=== PATIENT | male | born 1955 | race American Indian/Alaskan Native ===

== ENCOUNTER 2023-10-15 07:25 | Day surgery (SDC) | payer BC, OTHER ==
[~2023-10-15] VITALS: Ht 172.7 cm; Wt 79.4 kg
[~2023-10-15 07:25] MED LIST: AMOX TR-K CLV1 EAC1 PO; ASPIRIN81 MG PO; CIPRO500 MG PO; CRESTOR20 MG PO; DOXYCYCLINE HY100 MG PO; ERYTHROMYCIN333 MG PO; HUMALOG100 UNITS/ IV; IBLOOD GLUCOSE TEST STRIP 1 EA TEST VI PRN; LACTATED RINGER'S 1,000 ML IV SCH; LIDOCAINE HCL 1% 5 ML SDV INJ ONE; MAGNESIUM400 M1 PO; METFORMIN HCL500 MG PO; NEURONTIN300 MG PO; OZEMPIC1 MG/0.71 SUB-Q; PRILOSEC OTC20 MG PO; TRAZODONE HCL50 MG NG; ZESTRIL5 MG PO
[2023-10-15] MEDS ORDERED: propofoL 200 MG/20 ML VIAL ONE (07:36)
[2023-10-15] MEDS ORDERED: LIDOCAINE HCL 2% 5 ML SDV ONE (07:36)
[2023-10-15 07:44] VITALS: BP 124/63
--- NOTE | 2023-10-15 09:22 | NUR ---
10/15/23 0922 Paulette Valencia ON ARRIVAL TO PACU: 78. PATIENT IS UNRESPONSIVE TO MY VOICE. BEDSIDE REPORT TAKEN FROM JE RIZO.
[2023-10-15 09:45] VITALS: BP 119/66
--- NOTE | 2023-10-16 07:29 | OR ---
[facility] [address], [place] [address] Signed DATE OF OPERATION: 10/15/2023 SURGEON: Indira Flanagan MD PREOPERATIVE DIAGNOSES: 1. Screening colonoscopy. 2. Microcytic anemia. POSTOPERATIVE DIAGNOSES: 1. 4 mm polyp at base of cecum. 2. 4 mm polyp at 90 cm in transverse colon. 3. 5 mm polyp at 50 cm in left colon. 4. Minimal internal hemorrhoids. PROCEDURE: Colonoscopy with hot biopsy. ESTIMATED BLOOD LOSS: None. INDICATIONS: Tyron is a 68-year-old obese diabetic gentleman, asked to see me for a followup screening colonoscopy. He described a colonoscopy in 2020 at the age of 63 [address] Nixon. He told me it was negative. We have been trying to track down those results. He said he has no lower GI complaints. There is no family history of colon cancer or polyps. We see on his preop laboratory work that his hemoglobin is a little low at 9.9 and his mean cell volume of 79. In the office I had given him a pamphlet on colonoscopy. We had reviewed the nature of the test. There is risk including, but not limited to gas bloating, crampy abdominal pain, bleeding, perforation requiring surgery, and missed diagnosis. We also reviewed the need for monitored anesthesia care given his full face heavy neck, chest and abdomen. We also discussed the idea that he would work or drive for 24 hours afterwards. He is also an insulin-dependent diabetic. We did ask him to hold the Ozempic one week prior to procedure. He had expressed understanding and wished to proceed. We also see on his preop EKG that he has some fairly significant sinus arrhythmia. It is something he might want to review with his primary care provider. PROCEDURE IN DETAIL: Tyron was taken into our endoscopy suite and placed in the left lateral decubitus position. He was given monitored anesthesia care with propofol infusion per our nurse chiropractic practice manager. A digital rectal exam was performed and he had good sphincter tone. No Electronically Signed By: INDIRA FLANAGAN MD 10/16/23 0729 PATIENT NAME: TYRON DONALD OPERATIVE REPORT DATE OF : 53 REPORT #: [id number] PHYSICIAN: INDIRA FLANAGAN MD PCP: ANUEL TYSON MD REPORT IS CONFIDENTIAL AND NOT TO BE RELEASED WITHOUT AUTHORIZATION [facility] [address], [place] [address] Signed external hemorrhoids. No masses. His prostate is enlarged just a little boggy inferiorly on the right. After this the adult colonoscope was introduced, advanced all the way around into the cecum under direct visualization of camera without difficulty. His prep was good. There were a few areas of liquid stool which we suctioned out. We could easily see the appendiceal orifice and ileocecal valve. We had taken pictures throughout for photodocumentation. The above-mentioned polyps were easily removed with the help of hot biopsy forceps. There was no diverticulosis. In the rectum, the scope was retroflexed. He has standard minimal internal hemorrhoid columns. After this, the gas was suctioned out. The colonoscope removed. Tyron tolerated the procedure quite well. RECOMMENDATIONS: Tyron will follow up my office in 7 to 14 days to review his results. He could always review the sinus arrhythmia on the EKG with his primary care provider along with his digital rectal exam. Also, it looks like he now has microcytic anemia, which he might again review with his primary care provider. Indira Flanagan MD ALB/MODL /[id number] cc: MD Anuel Ruvalcaba MD Copies: INDIRA FLANAGAN MD, JAMES MD ~ Electronically Signed By: INDIRA FLANAGAN MD 10/16/23 0729 PATIENT NAME: TYRON DONALD OPERATIVE REPORT DATE OF : 53 REPORT #: [id number] PHYSICIAN: INDIRA FLANAGAN MD PCP: ANUEL TYSON MD REPORT IS CONFIDENTIAL AND NOT TO BE RELEASED WITHOUT AUTHORIZATION
--- NOTE | 2023-10-21 11:05 | PATH ---
[facility] [address], [place] [address] Signed SPECIMEN(S): A CECUM POLYP SPECIMEN(S): B COLON POLYP, 90 CM SPECIMEN(S): C SPLENIC FLEXURE POLYP, 58 CM SPECIMEN SOURCE: A. CECUM POLYP B. COLON POLYP, 90 CM C. SPLENIC FLEXURE POLYP, 58 CM CLINICAL HISTORY: Screening colonoscopy, postop: Colon polyps, internal hemorrhoids. FINAL PATHOLOGIC DIAGNOSIS: A. Cecal polyp, biopsies: - Fragments of tubular adenoma. B. Colon polyp at 90 cm, biopsy: - Hyperplastic colonic mucosa. C. Splenic flexure polyp at 58 cm, biopsy: - Tubular adenoma. AMB MICROSCOPIC EXAMINATION: Histologic sections of all submitted blocks are examined by light microscopy. These findings, together with the gross examination, support the pathologic diagnosis. GROSS DESCRIPTION: A. The specimen, labeled and designated "Km, Jason, 1." and designated on the requisition "cecum polypectomy," is received in formalin and consists of two del rosario soft tissue fragments that measure 0.2 and 0.4 cm in greatest dimension. The specimen is entirely submitted in (A1). B. The specimen, labeled and designated "Km, Jason, 2." and designated on the requisition "colon polypectomy at 90 cm," is received in formalin and consists of one del rosario soft tissue fragment that is 0.3 cm in greatest dimension. The specimen is entirely submitted in (B1). C. The specimen, labeled and designated "Km, G, 3." and designated on the requisition "splenic flexure polypectomy at 58 cm," is received in formalin and consists of two del rosario soft tissue fragments that measure 0.1 and 0.3 cm in greatest dimension. The specimen is entirely submitted in (C1). FB (under the direct supervision of a pathologist) PATIENT NAME: ALBERT DONALD PATHOLOGY DATE OF : 53 REPORT #: [id number] PHYSICIAN: MARILYN ZHAO PCP: ANUEL TYSON MD REPORT IS CONFIDENTIAL AND NOT TO BE RELEASED WITHOUT AUTHORIZATION [facility] [address], [place] [address] Signed The Gross Description was prepared using a voice recognition system. The report was reviewed for accuracy; however, sound-alike word errors, addition and/or deletions may occur. If there is any question about this report, please contact Client Services. ADDITIONAL NOTES: Immunohistochemical and/or in situ hybridization studies if performed in this case included appropriate positive controls that reacted as expected. This test was developed and its performance characteristics determined by [facility]. It has not been cleared or approved by the U.S. Food and Drug Administration. The FDA has determined that such clearance or approval is not necessary. This test is used for clinical purposes. It should not be regarded as investigational or for research. [facility] is certified under the Clinical Laboratory Improvement Amendments of 1988 (CLIA) as qualified to perform high complexity clinical laboratory testing. PERFORMING LABORATORY: Technical component was performed by [facility], [address] [place] [id number] (CLIA# [id number]). Professional interpretation was performed by [facility] [address] [place] [id number] Diagnostician: Kristie Arboleda MD Pathologist Electronically Signed 10/21/2023 Copies: ~ PATIENT NAME: ALBERT DONALD PATHOLOGY DATE OF : 53 REPORT #: [id number] PHYSICIAN: MARILYN PATHOLOGY PCP: ANUEL TYSON MD REPORT IS CONFIDENTIAL AND NOT TO BE RELEASED WITHOUT AUTHORIZATION
== END 2023-10-15 09:58 | disposition home or self-care (01) ==
LOC: DS 07:25
PROVIDERS: ATTEND Colon & Rectal Surgery
PROC: 0DBL8ZX Excision of Transverse Colon, Via Natural or Artificial Opening Endoscopic, Diagnostic (ICD-10-PCS; 2023-10-15)
PROC: 0DBG8ZX Excision of Left Large Intestine, Via Natural or Artificial Opening Endoscopic, Diagnostic (ICD-10-PCS; 2023-10-15)
PROC: 0DBH8ZX Excision of Cecum, Via Natural or Artificial Opening Endoscopic, Diagnostic (ICD-10-PCS; principal; 2023-10-15 08:45)
DX: Z12.11 Encounter for screening for malignant neoplasm of colon (principal); D12.0 Benign neoplasm of cecum; D12.3 Benign neoplasm of transverse colon; K63.5 Polyp of colon; K64.8 Other hemorrhoids; D50.9 Iron deficiency anemia, unspecified; E66.9 Obesity, unspecified; G25.81 Restless legs syndrome; K21.9 Gastro-esophageal reflux disease without esophagitis; I10 Essential (primary) hypertension; E11.42 Type 2 diabetes mellitus with diabetic polyneuropathy; E55.9 Vitamin D deficiency, unspecified; Z79.84 Long term (current) use of oral hypoglycemic drugs; Z79.4 Long term (current) use of insulin; Z88.8 Allergy status to other drugs, medicaments and biological substances
CPT/HCPCS: 00811; J2001; J2704; J7121